=== PATIENT | male | born 1980 | race Caucasian/White ===

== ENCOUNTER 2016-12-31 14:48 | Emergency (ER) | payer MEDICARE ==
[~2016-12-31] VITALS: Ht 188 cm
[2016-12-31] MEDS ORDERED: VALIUM10 M1 PO (16:21)
[2016-12-31] MEDS ORDERED: NORCO 10-325 T1 EACH PO (16:21)
[2016-12-31] MEDS ORDERED: FENTANYL1 EAC3 TD (16:22)
[2016-12-31] MEDS ORDERED: PROSOM PO (16:22)
[2016-12-31] MEDS ORDERED: REMERON15 M1 PO (16:23)
[2016-12-31] MEDS ORDERED: KEFLEX500 M4 PO (16:33)
== END 2016-12-31 17:15 ==
LOC: EDMED 14:48
DX: L03.012 Cellulitis of left finger (principal); F43.10 Post-traumatic stress disorder, unspecified; Z79.899 Other long term (current) drug therapy